=== PATIENT | female | born 1980 | race Two or more races ===

== ENCOUNTER 2019-08-04 06:00 | Day surgery (SDC) | payer OTHER ==
[2019-08-04] MEDS ORDERED: AMOX1TAB5 PO (08:26)
[2019-08-04] MEDS ORDERED: PERCOCET 5-3251 EACH PO (08:27)
[2019-08-04] MEDS ORDERED: MUPIROCIN15 GM TOP (08:27)
== END 2019-08-04 12:20 | disposition home or self-care (01) ==
LOC: CIR.AMB 06:00 → ADM 12:45 → CIR.AMB 12:45
DX: L72.0 Epidermal cyst (principal)